=== PATIENT | female | born 1980 | race Two or more races ===

== ENCOUNTER 2020-04-13 17:54 | Emergency (ER) | payer OTHER ==
[~2020-04-13] VITALS: Ht 152.4 cm; Wt 75.7 kg
--- NOTE | 2020-04-13 18:55 | NUR ---
Gave pt d/c instructions, pt verbalized understanding.
== END 2020-04-13 19:00 | disposition home or self-care (01) ==
LOC: ER 17:54
DX: R50.9 Fever, unspecified (principal); R52 Pain, unspecified; Z20.828 Contact with and (suspected) exposure to other viral communicable diseases; Z90.710 Acquired absence of both cervix and uterus
CPT/HCPCS: 99283; U0003; A4663